=== PATIENT | female | born 1955 | race Two or more races ===

== ENCOUNTER → 2017-06-08 | Outpatient (CLI) | payer BC ==
[~2017-06-08] MED LIST: AMLO5TAB4 PO; ASPI-496 PO; ATOR-2 PO; CLOP75TA PO; INSU100I28 SQ-INSULIN; METF500T PO; [UNRECOGNIZED DRUG - CODE] PO
== END | disposition home or self-care (01) ==
LOC: CFH 10:52
PROVIDERS: ATTEND Registered Nurse
DX: I63.9 Cerebral infarction, unspecified (principal)
CPT/HCPCS: 70544

== ENCOUNTER → 2018-11-22 | Outpatient (CLI) | payer MEDICARE ==
[2018-11-22 12:47] LABS: ANION GAP 10 mmol/L (5-15); CALCIUM 9.2 mg/dL (8.5-10.1); CHLORIDE 97 mmol/L (98-107)
== END | disposition home or self-care (01) ==
LOC: CFH 09:11
PROVIDERS: ATTEND Internal Medicine Cardiovascular Disease
DX: I10 Essential (primary) hypertension (principal)
CPT/HCPCS: 36415; 80048

== ENCOUNTER 2019-01-19 07:14 | Outpatient (CLI) | payer MEDICARE ==
[2019-01-19 12:40] LABS: CHLORIDE 95 mmol/L (98-107)
[2019-01-19 12:45] LABS: ANION GAP 8 mmol/L (5-15); CALCIUM 9.2 mg/dL (8.5-10.1); CREATININE 1.13 mg/dL (0.55-1.02)
== END 2019-01-19 23:59 | disposition home or self-care (01) ==
LOC: CFH 07:14
PROVIDERS: ATTEND Nurse Practitioner Family
DX: E11.9 Type 2 diabetes mellitus without complications (principal); E78.2 Mixed hyperlipidemia; I10 Essential (primary) hypertension; I63.9 Cerebral infarction, unspecified
CPT/HCPCS: 36415; 80048

== ENCOUNTER 2019-07-05 07:01 | Outpatient (CLI) | payer MEDICARE | END 2019-07-05 23:59 | disposition home or self-care (01) | LOC: CVU 07:01 | PROVIDERS: ATTEND Registered Nurse | DX: I65.23 Occlusion and stenosis of bilateral carotid arteries (principal); E78.2 Mixed hyperlipidemia; I10 Essential (primary) hypertension; I70.90 Unspecified atherosclerosis | CPT/HCPCS: 93880 ==